=== PATIENT | female | born 1985 | race Caucasian/White ===

== ENCOUNTER 2019-04-21 13:15 | Outpatient (CLI) | payer OTHER, SELFPAY ==
[2019-04-21 14:13] LABS: Hematocrit 36.6 % (37.0-47.0); Hemoglobin 11.9 g/dL (12.0-15.0); Mean Corpuscular HGB Conc 32.5 g/dl (32-36); Mean Corpuscular Hemoglobin 29.9 pg (26-34); Mean Platelet Volume 10.2 fl (7.4-10.4); Platelet Count Result 273 k/mm3 (150-375); Red Blood Count 3.98 M/mm3 (4.2-5.4); Red Cell Distribution Width 12.2 % (11.5-14.5); White Blood Count 7.6 K/mm3 (4.5-10.0)
== END 2019-04-21 13:16 | disposition home or self-care (01) ==
LOC: ANHLAB 13:18
PROVIDERS: Visit Provider Obstetrics & Gynecology
DX: N92.6 Irregular menstruation, unspecified (principal)
CPT/HCPCS: 36415; 85027

== ENCOUNTER 2024-01-29 09:42 | Outpatient (CLI) | payer OTHER, SELFPAY ==
[2024-01-29 10:21] LABS: Basophils Percent Auto 0.3 % (0.2-1.2); Eosinophils Absolute Auto 0.1 K/mm3 (0-0.3); Eosinophils Percent Auto 0.7 % (0-4.4); Hematocrit 38.1 % (37.0-47.0); Hemoglobin 12.3 g/dL (12.0-15.0); Immature Granulocyte Absolute 0.05 K/mm3 (0.00-0.031); Immature Granulocyte Percent A 0.6 % (0-0.5); Lymphocytes Absolute Auto 1.47 K/mm3 (0.9-3.2); Mean Corpuscular HGB Conc 32.3 g/dl (32-36); Mean Corpuscular Hemoglobin 29.4 pg (26-34); Mean Corpuscular Volume 91.1 fl (80-100); Mean Platelet Volume 10.1 fl (7.4-10.4); Monocytes Absolute Auto 0.5 K/mm3 (0.1-0.6); Monocytes Percent Auto 5.9 % (2.6-8.5); Neutrophils Absolute Auto 6.5 K/mm3 (1.3-6.7); Neutrophils Percent Auto 75.5 % (45.5-73.1); Platelet Count Result 275 k/mm3 (150-375); Red Blood Count 4.18 M/mm3 (4.2-5.4); Red Cell Distribution Width 13.2 % (11.5-14.5); White Blood Count 8.7 K/mm3 (4.5-10.0)
[2024-01-29 11:06] LABS: Rapid Plasma Reagin Non-Reactive (NonReactive)
[2024-01-29 11:11] LABS: Hepatitis B Surface Antigen Negative (Negative); Rubella IgG Antibody 48.1 IU/ML
[2024-01-29 11:12] LABS: HIV 1/2 Ab P24 Ag Result Negative (Negative)
[2024-01-30 07:18] LABS: CMV IgG Antibody <0.60 U/mL
== END 2024-01-29 09:43 | disposition home or self-care (01) ==
LOC: ANHLAB 09:43
PROVIDERS: Visit Provider Student in an Organized Health Care Education/Training Program
DX: N94.89 Other specified conditions associated with female genital organs and menstrual cycle (principal)
CPT/HCPCS: 36415; 84702; 85025; 86592; 86644; 86703; 86747; 86762; 86787; 86850; 86900; 86901; 87086; 87340; G0432

== ENCOUNTER 2024-04-04 08:44 | Outpatient (CLI) | payer OTHER, SELFPAY ==
--- NOTE | ~2024-04-04 | US_ITS ---
US OB limited 04/04/2024 09:04 Indication: Evaluate cervical length. Procedure: High-resolution Limited obstetrical ultrasound Comparison: Ultrasound dated 02/06/2024 Findings: There is a single living intrauterine in variable presentation. heart rate 183 BPM. Amniotic fluid is subjectively normal. Cervical length is 3.7 cm. The placenta is anterior. No evidence for previa. Impression: 1: Cervical length is 3.7 cm. Reviewed, dictated and finalized at location A. BURSEMENT DIRECTOR Impression: 1: Cervical length is 3.7 cm.
== END 2024-04-04 08:45 | disposition home or self-care (01) ==
LOC: MICIMG 08:45
PROVIDERS: PCP Obstetrics & Gynecology; Visit Provider Obstetrics & Gynecology
DX: O09.892 Supervision of other high risk pregnancies, second trimester (principal)
CPT/HCPCS: 76815

== ENCOUNTER 2024-04-11 14:15 | Outpatient (CLI) | payer OTHER, SELFPAY ==
--- NOTE | ~2024-04-11 | US_ITS ---
EXAMINATION: US OB limited DATE: 04/11/2024 14:42 INDICATION: Supervision of high risk during second trimester of . TECHNIQUE: Real-time ultrasound of the pelvis was performed. The interpreting radiologist was not pre sent for the study. COMPARISON: None. FINDINGS: There is a single living fetus in vertex presentation. The placenta is anterior and not low-lying wi th caudal margin 12.8 cm from the internal cervical os. heart rate is 150 beats per minute (bpm ). The amniotic fluid volume is subjectively normal. Normal cervical length of 3.9 cm. There are a fe w small anechoic nabothian cysts measuring up to 4 mm at the cervix. IMPRESSION: 1. Single living fetus in vertex presentation with heart rate of 150 bpm. 2. Normal cervical length of 3.9 cm. Reviewed, dictated and finalized at location B. ER HAND IMPRESSION: 1. Single living fetus in vertex presentation with heart rate of 150 bpm . 2. Normal cervical length of 3.9 cm.
== END 2024-04-11 14:16 | disposition home or self-care (01) ==
LOC: MICIMG 14:15
PROVIDERS: PCP Obstetrics & Gynecology; Visit Provider Obstetrics & Gynecology
DX: O09.892 Supervision of other high risk pregnancies, second trimester (principal); Z3A.00 Weeks of gestation of pregnancy not specified
CPT/HCPCS: 76815

== ENCOUNTER 2024-06-23 09:51 | Outpatient (CLI) | payer OTHER, SELFPAY ==
--- OUTSIDE RECORDS SUMMARY | 2024-06-23 11:23 | XMS_ITS | Clinical Summary ---
Author Organization [facility] Address [address] [place] [address] Care Team Providers Care Tin Cutter Name Role Phone Unavailable Primary Care Provider Unavailabl e Source Comments [facility],non-owned Affiliates and Associated Physician Practices is amultiple site organization consisting of ambulatory clinics and hospital sitesin [place], [place], [place] and [place]. This disclosure is being madepursuant to the Care Everywhere program and may not contain all information available regarding this patient. Last updated 17.[facility] Allergies No known active allergies Medications * Be aware that medications may not be up to date on this document. Alwaysverify current medications with the patient. Vit-DSS-Fe Fum-FA ( vitamin with iron) tablet Take 1 (one) tablet by mouth once daily Active aspirin (Aspirin) 81 MG chew tabletIndicatio ns:Preeclampsia Take 2 (two) tablets by mouth once [...] - 05/23/2024 11:59 PM CDT Hospital Encounter [facility] Women's Health Maternal & Care [address] [place] [phone] Srini Goncalves MD Discharge Disposition: Home or Self Care 05/09/2024 7:29 AM HOGSHEAD OPENER - 05/09/2024 11:59 PM HOGSHEAD OPENER Hospital Encounter [facility] Maternal & Care [address] [place] [phone] Jin Ross MD Discharge Disposition: Home or Self Care 04/23/2024 8:46 AM HOGSHEAD OPENER - 04/23/2024 11:59 PM HOGSHEAD OPENER Hospital Encounter [facility] Maternal & Care [address] [place] [phone] Dania Castorena MD Discharge Disposition: Home or Self Care 04/23/2024 8:41 AM HOGSHEAD OPENER - 04/23/2024 8:45 AM HOGSHEAD OPENER Hospital Encounter [facility] Maternal & Care [address] [place] [phone] Dania Castorena MD Discharge Disposition: Home or Self Care 03/31/2024 Telephone [facility] Maternal & Care [address] [place] [phone] Marina Kim Appointment (LM for pt to [...] Recorded Sex Assigned at Not on file Legal Sex Female 6:29 AM HOGSHEAD OPENER Gender Identity Not on file Sexual Orientation Not on file Last Filed Vital Signs Vital Sign Reading Time Taken Comments Blood Pressure 119/71 04/23/2024 10:01 AM HOGSHEAD OPENER Pulse 71 04/23/2024 10:01 AM HOGSHEAD OPENER Temperature - - Respiratory Rate - - Oxygen Saturation - - Inhaled Oxygen Concentration - - Weight 77.6 kg (171 lb) 04/23/2024 10:01 AM HOGSHEAD OPENER Height 160 cm (5' 3 ) 04/23/2024 10:01 AM HOGSHEAD OPENER Body Mass Index 30.29 04/23/2024 10:01 AM HOGSHEAD OPENER Plan of Treatment Upcoming Encounters Date Type Department Care Team (Late st Contact Info) Description 07/04/2024 7:30 AM CDT Hospital Encounter [facility] Maternal & Care [address] [place] [address] Health Maintenance Due Date Last Done Comments [...] second trimester SONOGRAM - COMPLETE Routine 05/09/2024 7 :33 AM HOGSHEAD OPENER Hx of delivery, currently , second trimester Multigravida of advanced maternal age in second trimester SONOGRAM - COMPLETE Routine 04/23/2024 8 :59 AM HOGSHEAD OPENER Encounter for anatomic survey Hx of delivery, currently , second trimester 19 weeks gestation of from Last 3 Months Results * SONOGRAM - TRANSVAGINAL (05/23/2024 7:25 AM CDT) Linked Results Indication ======== AMA History of Obesity BMI 30 History ====== OB History 4. Para 2 [id number] 1. live 2004. Gest. age 27 w [...] 1 lb 8 oz EFW by Hadlock ([id number]) appropriate Growth Overview Exam date [place] BPD [...] ======== As clinically indicated Coding ====== Procedures 77076: [place] [address]: US Preg Uterus Transvaginal [facility] [employer] PACS Anatomical Region Laterality Modality Other 05/23/2024 7:25 AM CDT Francesca Santillan MD [facility] ORDERABLES Edited Result - Final * SONOGRAM - COMPLETE (05/09/2024 7:33 AM HOGSHEAD OPENER) Only the most recent of2 resultswithin the time period is included. Linked Results Indication ======== Anatomy Screen Complete AMA History of Obesity BMI 30 History ====== OB History 4. Para 2 [id number] 1. live 2004. Gest. age 27 w [...] and cervical length assessment Coding ====== Procedures 87285: US Uterus Limited 68937: US Preg [facility]us [facility]inal [facility] Anatomical Region Laterality Modality Other 05/09/2024 7:33 AM HOGSHEAD OPENER Francesca Santillan MD [facility] ORDERABLES Edited Result - Final from Last 3 Months Insurance
[2024-06-23 11:29] LABS: Hematocrit 29.7 % (37.0-47.0); Hemoglobin 9.2 g/dL (12.0-15.0); Mean Corpuscular Volume 93.7 fl (80-100); Mean Platelet Volume 9.9 fl (7.4-10.4); Platelet Count Result 245 k/mm3 (150-375); Red Blood Count 3.17 M/mm3 (4.2-5.4); White Blood Count 9.5 K/mm3 (4.5-10.0)
[2024-06-23 11:41] LABS: Glucose 1 Hour PP 50gm Dose 160 mg/dL
[2024-06-23 12:50] LABS: Syphilis IgG/IgM Antibody Negative (Negative)
[2024-06-23 13:15] LABS: HIV 1/2 Ab P24 Ag Result Negative (Negative)
== END 2024-06-23 09:52 | disposition home or self-care (01) ==
LOC: ANHLAB 10:05
PROVIDERS: Visit Provider Obstetrics & Gynecology
DX: Z34.90 Encounter for supervision of normal pregnancy, unspecified, unspecified trimester (principal); Z3A.00 Weeks of gestation of pregnancy not specified
CPT/HCPCS: 36415; 82947; 85027; 86593; 86703; G0432

== ENCOUNTER 2024-07-01 06:52 | Outpatient (CLI) | payer OTHER, SELFPAY ==
--- OUTSIDE RECORDS SUMMARY | 2024-07-01 06:55 | XMS_ITS | Clinical Summary ---
Author Organization [facility] [employer] Address [address] [place] [address] Care Team Providers Care Manager Benefit Name Role Phone Unavailable Primary Care Provider Unavailabl e Source Comments [facility] [employer],non-owned Affiliates and Associated Physician Practices is amultiple site organization consisting of ambulatory clinics and hospital sitesin [place], [place], [place] and [place]. This disclosure is being madepursuant to the Care Everywhere program and may not contain all information available regarding this patient. Last updated 17.[facility] [employer] Allergies No known active allergies Medications * [...] - 05/23/2024 11:59 PM CDT Hospital Encounter [facility] [employer] Women's Health Maternal & Care [address] [place] [phone] Srini Goncalves MD Discharge Disposition: Home or Self Care 05/09/2024 7:29 AM STEWARD/STEWARDESS SMOKE ROOM - 05/09/2024 11:59 PM STEWARD/STEWARDESS SMOKE ROOM [facility] [address] [place] [phone] Jin Ross MD Discharge Disposition: Home or Self Care 04/23/2024 8:46 AM STEWARD/STEWARDESS SMOKE ROOM - 04/23/2024 11:59 PM STEWARD/STEWARDESS SMOKE ROOM [facility] [address] [place] [phone] Dania Castorena MD Discharge Disposition: Home or Self Care 04/23/2024 8:41 AM STEWARD/STEWARDESS SMOKE ROOM - 04/23/2024 8:45 AM STEWARD/STEWARDESS SMOKE ROOM [facility] [address] [place] [phone] Dania Castorena MD Discharge Disposition: Home or Self Care from Last 3 Months Family History Relation [...] on file Legal Sex Female 6:29 AM STEWARD/STEWARDESS SMOKE ROOM Gender Identity Not on file Sexual Orientation Not on file Last Filed Vital Signs Vital Sign Reading Time Taken Comments Blood Pressure 119/71 04/23/2024 10:01 AM STEWARD/STEWARDESS SMOKE ROOM Pulse 71 04/23/2024 10:01 AM STEWARD/STEWARDESS SMOKE ROOM Temperature - - Respiratory Rate - - Oxygen Saturation - - Inhaled Oxygen Concentration - - Weight 77.6 kg (171 lb) 04/23/2024 10:01 AM STEWARD/STEWARDESS SMOKE ROOM Height 160 cm (5' 3 ) 04/23/2024 10:01 AM STEWARD/STEWARDESS SMOKE ROOM Body Mass Index 30.29 04/23/2024 10:01 AM STEWARD/STEWARDESS SMOKE ROOM Plan of Treatment Upcoming Encounters Date Type Department Care Team (Late st Contact Info) Description 07/04/2024 7:30 AM CDT Hospital Encounter [facility] Maternal & Care [address] [phone] Health Maintenance Due Date Last Done Comments PAP SMEAR 1986 HIV SCREENING 2001 HEPATITIS C SCREENING 11/28/2004 DTAP/TDAP/TD VACCINES (1 - Tdap) 2005 HEPATITIS B VACCINE (1 of 3 - 19+ 3-dose series) 2005 COVID-19 VACCINE (1 - 2023-2 5 season) 2023 DEPRESSION SCREENING [...] - COMPLETE Routine 05/09/2024 7 :33 AM STEWARD/STEWARDESS SMOKE ROOM Hx of delivery, currently , second trimester Multigravida of advanced maternal age in second trimester SONOGRAM - COMPLETE Routine 04/23/2024 8 :59 AM STEWARD/STEWARDESS SMOKE ROOM Encounter for anatomic survey Hx of delivery, currently , second trimester 19 weeks gestation of from Last 3 Months Results * SONOGRAM - TRANSVAGINAL (05/23/2024 7:25 AM CDT) Linked Results Indication ======== AMA History of Obesity BMI 30 History ====== OB History 4. Para 2 [id number] 1. live 2004. Gest. age 27 w [...] 1 lb 8 oz EFW by Hadlock ([id number]) appropriate Growth Overview Exam date [place] BPD [...] ======== As clinically indicated Coding ====== Procedures [id number]: [place] [address]: US Preg Uterus Transvaginal [facility] [employer] PACS Anatomical Region Laterality Modality Other 05/23/2024 7:25 AM CDT Francesca Santillan MD [facility] ORDERABLES Edited Result - Final * SONOGRAM - COMPLETE (05/09/2024 7:33 AM STEWARD/STEWARDESS SMOKE ROOM) Only the most recent of2 resultswithin the time period is included. Linked Results Indication ======== Anatomy Screen Complete AMA History of Obesity BMI 30 History ====== OB History 4. Para 2 [id number] 1. live 2005. Gest. age 27 w + 0 d. [...] and cervical length assessment Coding ====== Procedures 43693: US Uterus Limited 74315: US Preg Uterus Transvaginal [facility] [employer] PACS Anatomical Region Laterality Modality Other 05/09/2024 7:33 AM STEWARD/STEWARDESS SMOKE ROOM Francesca Santillan MD [facility] ORDERABLES Edited Result - Final from Last 3 Months Insurance [employer]
[2024-07-01 07:31] LABS: Glucose Fasting Gestational 89 mg/dL (>/=95)
[2024-07-01 08:42] LABS: Glucose 1 Hour Gest 181 mg/dL (>/=180)
[2024-07-01 09:59] LABS: Glucose 2 Hour Gest 167 mg/dL (>/= 155)
[2024-07-01 10:43] LABS: Glucose 3 Hour Gest 117 mg/dL (>/=140)
== END 2024-07-01 06:53 | disposition home or self-care (01) ==
PROVIDERS: Visit Provider Obstetrics & Gynecology
DX: O99.810 Abnormal glucose complicating pregnancy (principal); Z3A.00 Weeks of gestation of pregnancy not specified
CPT/HCPCS: 36415; 82951; 82952

== ENCOUNTER 2024-07-23 19:09 | Observation (INO) | payer OTHER, SELFPAY ==
[2024-07-23] VITALS (27 sets, daily range): BP systolic 109–118; BP diastolic 69–77; PULSE 73–99; O2SAT 97–100; BMI 32.5
--- OUTSIDE RECORDS SUMMARY | 2024-07-23 19:17 | XMS_ITS | Clinical Summary ---
Author Organization [facility] Address [address] [place] [address] Care Team Providers Care Cam Maker Name Role Phone Unavailable Primary Care Provider Unavailabl e Source Comments [facility],non-owned Affiliates and Associated Physician Practices is amultiple site organization consisting of ambulatory clinics and hospital sitesin [place], [place], [place] and [place]. This disclosure is being madepursuant to the Care Everywhere program and may not contain all information available regarding this patient. Last updated 17.[facility] Allergies No known active allergies Medications * [...] Encounters Date Type Department Care Team Description 07/04/2024 11:59 PM CDT Hospital Encounter [facility] Women's Health Maternal & Care [facility] [place] [address] Head, Katie Jacobs MD Discharge Disposition: Home or Self Care 05/23/2024 7:27 AM CDT - 05/23/2024 11:59 PM CDT Hospital Encounter [facility] [address] [place], [place] [id number] Srini Goncalves MD Discharge Disposition: Home or Self Care 05/09/2024 7:29 AM WINDOWS INFRASTRUCTURE ENGINEER - 05/09/2024 11:59 PM WINDOWS INFRASTRUCTURE ENGINEER Hospital Encounter [facility] [address] [place] [id number] Jin Ross MD Discharge Disposition: Home or [...] on file Legal Sex Female 6:29 AM WINDOWS INFRASTRUCTURE ENGINEER Gender Identity Not on file Sexual Orientation Not on file Last Filed Vital Signs Vital Sign Reading Time Taken Comments Blood Pressure 119/71 04/23/2024 10:01 AM WINDOWS INFRASTRUCTURE ENGINEER Pulse 71 04/23/2024 10:01 AM WINDOWS INFRASTRUCTURE ENGINEER Temperature - - Respiratory Rate - - Oxygen Saturation - - Inhaled Oxygen Concentration - - Weight 77.6 kg (171 lb) 04/23/2024 10:01 AM WINDOWS INFRASTRUCTURE ENGINEER Height 160 cm (5' 3 ) 04/23/2024 10:01 AM WINDOWS INFRASTRUCTURE ENGINEER Body Mass Index 30.29 04/23/2024 10:01 AM WINDOWS INFRASTRUCTURE ENGINEER Plan of Treatment Health Maintenance Due Date Last Done Comments PAP SMEAR 1986 HIV SCREENING 2001 HEPATITIS C SCREENING 11/28/2004 DTAP/TDAP/TD VACCINES (1 - Tdap) 2005 HEPATITIS B VACCINE (1 of 3 - 19+ 3-dose series) 2005 COVID-19 VACCINE (2023-2 5 season) 2023 DEPRESSION SCREENING 03/05/2024 OB-ONE [...] Priority Date/Time Associated Diagnosis Comments SONOGRAM - COMPLETE Routine 07/04/2024 7 :43 AM CDT Hx of delivery, currently , second trimester (HCC) Multigravida of advanced maternal age in second trimester ([facility]) with 29 completed weeks gestation (HCC) Encounter for ultrasound to assess growth ([facility]) SONOGRAM - TRANSVAGINAL Routine 05/23/2024 7:25 AM CDT Hx of delivery, currently , second trimester Multigravida of advanced maternal age in second trimester SONOGRAM - COMPLETE Routine 05/09/2024 7 :33 AM WINDOWS INFRASTRUCTURE ENGINEER Hx of delivery, currently , second trimester Multigravida of advanced maternal age in second trimester from Last 3 Months Results * SONOGRAM - COMPLETE (07/04/2024 7:43 AM CDT) Only the most recent of2 resultswithin the time period is included. Linked Results Indication ======== A1GDM (well controlled) AMA History of Obesity BMI 30 History ====== OB History 4. Para 2 [id number] 1. live 2004. Gest. age 27 w + 0 d. Weight 1,559 g. Sex of child: female. Details: Vaginal delivery; PROM 2. live 2017. Gest. age 39 w + 0 d. Weight 3,033 g. Sex of child: male. Details: Vaginal delivery 3. elective termination Lab Tests Test Date Result Declined Maternal Assessment Physical Exam Height 160 cm, 5 ft 3 in. Weight 82 kg, 180 lb. Initial weight 73 kg, 160 lb. BMI 31.89 kg/m . Initial BMI 28.34 kg/m . Weight gain 9 kg, 20 lb Method ====== Transabdominal ultrasound. View: Sufficient ========= Navarrete . Number of fetuses: 1 Dating ====== Date Details Gest. age ROMMEL LMP 12/09/2023 29 w + 5 d 09/14/2024 Stated ROMMEL 29 w + 5 d 09/14/2024 U/S 07/04/2024 based upon AC, BPD, Femur, HC 30 w + 3 d 09/09/2024 Assigned dating based on the LMP, selected on 04/23/2024 29 w + 5 d 09/14/2024 General Evaluation Cardiac activity present. FHR 144 bpm. Presentation: cephalic Placenta: Placental site: anterior Amniotic fluid: Amount of AF: normal. MVP 8.2 cm. TK 24.1 cm. Q1 3.6 cm, Q2 5.6 cm, Q3 8.2 cm, Q4 6.7 cm Biometry BPD 77.1 mm 31w 0d 76% Hadlock HC 282.0 mm 30w 6d 50% Hadlock AC 264.1 mm 30w 4d 69% Hadlock Femur 54.9 mm 29w 0d 17% Hadlock Humerus 49.4 mm 29w 0d 29% Miranda HC / AC 1.07 Weight Calculation: EFW 1,512 g 51% Hadlock EFW (lb,oz) 3 lb 5 oz EFW by Hadlock ([id number]) appropriate Growth Overview Exam date GA BPD (mm) HC (mm) AC (mm) FL (mm) HL (mm) EFW (g) 04/23/2024 19w 3d 46.4 75% 169.9 51% 144 56% 30.1 38% 29.6 62% 299 51% 05/23/2024 23w 5d 60.5 77% 218.2 38% 202.3 76% 42.7 45% 40 59% 694 73% 07/04/2024 29w 5d 77.1 76% 282 50% 264.1 69% 54.9 17% 49.4 29% 1512 51% Anatomy The following structures appear normal: Abdomen Stomach. Kidneys. Bladder. Impression ========= Single, live, intrauterine at 29w 5d The size is appropriate. Interval growth is appropriate. The amniotic fluid volume is normal. No major malformations were seen within the limits of ultrasound. Comment ======== ultrasound alone cannot detect all structural, genetic, or functional , placental, or maternal abnormalities Follow-up ======== Follow up ultrasound in 4 weeks for growth assessment (patient prefers to have all further ultrasounds at her primary OB office) Coding ====== Procedures 35725: US Preg Uterus Follow Up [employer] PACS Anatomical Region Laterality Modality Other 07/04/2024 7:43 AM CDT Francesca Santillan MD [facility] ORDERABLES Edited Result - Final * SONOGRAM - TRANSVAGINAL (05/23/2024 7:25 AM CDT) Linked Results Indication ======== AMA History of Obesity BMI 30 History ====== OB History 4. Para 2 [id number] 1. live 2004. Gest. age 27 w [...] 1 lb 8 oz EFW by Hadlock ([id number]-FL) appropriate Growth Overview Exam date GA BPD [...] ======== As clinically indicated Coding ====== Procedures 67698: [place] [id number]: [place] Preg Uterus Transvaginal [employer] PACS Anatomical Region Laterality Modality Other 05/23/2024 7:25 AM CDT Francesca Santillan MD [facility] ORDERABLES Edited Result - Final from Last 3 Months Insurance [employer]
--- NOTE | 2024-07-24 07:47 | PM.OBTRLD ---
OB - Triage/Final Diagnosis Visit Information Date of evaluation: 07/23/24 Reason for evaluation: other (fall) Comments/Additional reasons for admission: I have assessed the risk for this patient, Michelle A Spier, and determined that she would benefit from observation care. Evaluation Vital signs: Vital Signs - 24 hr 07/23/24 19:15 07/23/24 19:25 07/23/24 19:26 Pulse Rate 99 Blood Pressure 111/71 Pulse Oximetry 99 Oxygen Delivery Room Air 07/23/24 19:30 07/23/24 19:35 07/23/24 19:40 Pulse Rate 91 Blood Pressure 113/69 Pulse Oximetry 97 98 98 Oxygen Delivery 07/23/24 19:45 07/23/24 19:50 07/23/24 19:55 Pulse Rate 82 Blood Pressure 118/73 Pulse Oximetry 98 99 98 Oxygen Delivery 07/23/24 20:00 07/23/24 20:05 07/23/24 20:10 Pulse Rate 82 Blood Pressure 109/73 Pulse Oximetry 98 97 98 Oxygen Delivery 07/23/24 20:15 07/23/24 20:20 07/23/24 20:25 Pulse Rate 73 Blood Pressure 115/77 Pulse Oximetry 97 98 98 Oxygen Delivery 07/23/24 20:30 07/23/24 20:35 07/23/24 20:40 Pulse Rate Blood Pressure Pulse Oximetry 98 98 99 Oxygen Delivery 07/23/24 20:46 07/23/24 20:51 07/23/24 20:56 Pulse Rate Blood Pressure Pulse Oximetry 100 99 100 Oxygen Delivery 07/23/24 21:01 07/23/24 21:06 07/23/24 21:11 Pulse Rate Blood Pressure Pulse Oximetry 99 99 99 Oxygen Delivery 07/23/24 21:16 07/23/24 21:21 07/23/24 21:26 Pulse Rate Blood Pressure Pulse Oximetry 100 99 99 Oxygen Delivery 07/23/24 21:31 Pulse Rate Blood Pressure Pulse Oximetry 99 Oxygen Delivery
== END 2024-07-23 21:45 | disposition home or self-care (01) ==
PROVIDERS: Admitting Provider Student in an Organized Health Care Education/Training Program; Visit Provider Student in an Organized Health Care Education/Training Program
DX: O26.893 Other specified pregnancy related conditions, third trimester (principal); W19.XXXA Unspecified fall, initial encounter; Z3A.32 32 weeks gestation of pregnancy
CPT/HCPCS: G0378; G0379

== ENCOUNTER 2024-09-08 07:27 | Outpatient (RCR) | payer OTHER, SELFPAY ==
--- OUTSIDE RECORDS SUMMARY | 2024-06-13 11:07 | XMS_ITS | Clinical Summary ---
Author Organization [facility] Address [address] [place] [address] Care Team Providers Care Cattle And Wheat Farmer Name Role Phone Unavailable Primary Care Provider Unavailabl e Source Comments [facility],non-owned Affiliates and Associated Physician Practices is amultiple site organization consisting of ambulatory clinics and hospital sitesin [place], [place], [place] and [place]. This disclosure is being madepursuant to the Care Everywhere program and may not contain all information available regarding this patient. Last updated 17.[facility] Allergies No known active allergies Medications * Be aware that medications may not be up to date on this document. Alwaysverify current medications with the patient. Medication Sig Dispensed Refills Start Date End Date Status Vit-DSS-Fe Fum-FA ( vitamin with iron) tablet Take 1 (one) tablet by mouth once daily Active aspirin (Aspirin) 81 MG chew tabletIndications:Pre eclampsia Take 2 (two) tablets by mouth once daily Reasons: Increased Blood Pressure and Edema During Active Active Problems Problem Noted Date Diagnosed Date Multigravida of advanced maternal age in second trimester 04/23/2024 Hx of delivery, curr ently , second trimester 04/23/2024 Estimated Date of Delivery Comme nts Yes 09/14/2024 Based on last me nstrual period of 12/09/2023 Encounters Date Type Department Care Team Description 05/23/2024 7:27 AM CDT - 05/23/2024 11:59 PM CDT Hospital Encounter [facility] Women's Health Maternal & Care [facility] [place] [address] Srini Goncalves MD Discharge Disposition: Home or Self Care 05/09/2024 7:29 AM HUMAN FACTORS ENGINEER - 05/09/2024 11:59 PM HUMAN FACTORS ENGINEER Hospital Encounter [facility] Maternal & Care [address] [place], [place] [id number] Jin Ross MD Discharge Disposition: Home or Self Care 04/23/2024 8:46 AM HUMAN FACTORS ENGINEER - 04/23/2024 11:59 PM HUMAN FACTORS ENGINEER Hospital Encounter [facility] Maternal & Care [address] [place], [place] [phone] Dania Castorena MD Discharge Disposition: Home or Self Care 04/23/2024 8:41 AM HUMAN FACTORS ENGINEER - 04/23/2024 8:45 AM HUMAN FACTORS ENGINEER Hospital Encounter [facility] Maternal & Care [address] [place] [phone] Dania Castorena MD Discharge Disposition: Home or Self Care 03/31/2024 Telephone [facility] Maternal & Care [address] [place] [phone] Marina Kim Appointment (LM for pt to C/S appt) from Last 3 Months Family History Relation Name Status Comments Brother 1 Alive Brother 2 Alive Brother 3 Alive Father Mother Sister Social History Tobacco Use Types Packs/Day Years Used Date Smoking Tobacco: Never Smokeless Tobacco: Never Tobacco Cessation:Counseling Given: Not Answered Alcohol Use Standard Drinks/Week Comments Not Currently 0 (1 standard drink = 0.6 oz pur e alcohol) Estimated Date of Delivery Comme nts Yes 09/14/2024 Based on last me nstrual period of 12/09/2023 Sex and Gender Information Value Date Recorded Sex Assigned at Not on file Gender Identity Not on file Sexual Orientation Not on file Last Filed Vital Signs Vital Sign Reading Time Taken Comments Blood Pressure 119/71 04/23/2024 10:01 AM HUMAN FACTORS ENGINEER Pulse 71 04/23/2024 10:01 AM HUMAN FACTORS ENGINEER Temperature - - Respiratory Rate - - Oxygen Saturation - - Inhaled Oxygen Concentration - - Weight 77.6 kg (171 lb) 04/23/2024 10:01 AM HUMAN FACTORS ENGINEER Height 160 cm (5' 3) 04/23/2024 10:01 AM HUMAN FACTORS ENGINEER Body Mass Index 30.29 04/23/2024 10:01 AM HUMAN FACTORS ENGINEER Plan of Treatment Upcoming Encounters Date Type Department Care Team (Late st Contact Info) Description 07/04/2024 7:30 AM CDT Appointment [facility] Maternal & Care [address] [place] [phone] Health Maintenance Due Date Last Done Comments PAP SMEAR 1986 HIV SCREENING 2001 HEPATITIS C SCREENING 11/28/2004 DTAP/TDAP/TD VACCINES (1 - Tdap) 2005 HEPATITIS B VACCINE (1 of 3 - 19+ 3-dose series) 2005 COVID-19 VACCINE ( - 2023-2 5 season) 2023 DEPRESSION SCREENING 03/05/2024 OB-ONE HOUR GLUCOSE 06/08/2024 OB-TDAP CURRENT 06/15/2024 OB-RHOGAM INJECTION 06/22/2024 INFLUENZA VACCINE (Season Ended) 2024 ZOSTER VACCINE (1 of 2) 2036 HIB VACCINE Aged Out No longer eligi ble based on patient's age to complete this topic HPV VACCINE Aged Out No longer eligi ble based on patient's age to complete this topic MENINGOCOCCAL (Group B) VACC INE SHARED DECISION-MAKING Aged Out No longer eligibl e based on patient's age to complete this topic MENINGOCOCCAL GROUPS A/C/Y/W VACCINE Aged Out No longer eligible b ased on patient's age to complete this topic PNEUMOCOCCAL VACCINE Aged Out No long er eligible based on patient's age to complete this topic Respiratory Syncytial Virus (RSV) Vaccine Pt: or over 60 yrs (No Doses Required) Completed Procedures Procedure Name Priority Date/Time Associated Diagnosis Comments SONOGRAM - TRANSVAGINAL Routine 05/23/2024 7:25 AM CDT Hx of delivery, currently , second trimester Multigravida of advanced maternal age in second trimester SONOGRAM - COMPLETE Routine 05/09/2024 7:33 AM HUMAN FACTORS ENGINEER Hx of delivery, currently , second trimester Multigravida of advanced maternal age in second trimester SONOGRAM - COMPLETE Routine 04/23/2024 8 :59 AM HUMAN FACTORS ENGINEER Encounter for anatomic survey Hx of delivery, currently , second trimester 19 weeks gestation of from Last 3 Months Results * SONOGRAM - TRANSVAGINAL (05/23/2024 7:25 AM CDT) Linked Results Indication ======== AMA History of Obesity BMI 30 History ====== OB History 4. Para 2 [id number] 1. live 2004. Gest. age 27 w + 0 d. Weight 1,559 g. Sex of child: female. Details: Vaginal delivery; PROM 2. live 2016. Gest. age 39 w + 0 d. Weight 3,033 g. Sex of child: male. Details: Vaginal delivery 3. elective termination Lab Tests Test Date Result Declined Maternal Assessment Physical Exam Height 160 cm, 5 ft 3 in. Weight 80 kg, 176 lb. Initial weight 73 kg, 160 lb. BMI 31.18 kg/m . Initial BMI 28.34 kg/m . Weight gain 7 kg, 16 lb Method ====== Transabdominal and transvaginal ultrasound. View: Sufficient ========= Navarrete . Number of fetuses: 1 Dating ====== Date Details Gest. age ROMMEL LMP 12/09/2023 23 w + 5 d 09/14/2024 Stated ROMMEL 23 w + 5 d 09/14/2024 U/S 05/23/2024 based upon AC, BPD, Femur, HC 24 w + 2 d 09/10/2024 Assigned dating based on the LMP, selected on 04/23/2024 23 w + 5 d 09/14/2024 General Evaluation Cardiac activity present. FHR 144 bpm. Presentation: breech Placenta: Placental site: fundal Amniotic fluid: Amount of AF: normal. MVP 5.9 cm Biometry BPD 60.5 mm 24w 4d 77% Hadlock HC 218.2 mm 23w 6d 38% Hadlock AC 202.3 mm 24w 6d 76% Hadlock Femur 42.7 mm 24w 0d 45% Hadlock Humerus 40.0 mm 24w 2d 59% Miranda HC / AC 1.08 Weight Calculation: EFW 694 g 73% Hadlock EFW (lb,oz) 1 lb 8 oz EFW by Hadlock ([id number]) appropriate Growth Overview Exam date GA BPD (mm) HC (mm) AC (mm) FL (mm) HL (mm) EFW (g) 04/23/2024 19w 3d 46.4 75% 169.9 51% 144 56% 30.1 38% 29.6 62% 299 51% 05/23/2024 23w 5d 60.5 77% 218.2 38% 202.3 76% 42.7 45% 40 59% 694 73% Anatomy The following structures appear normal: Abdomen Stomach. Kidneys. Bladder. Maternal Structures Cervix reassuring Approach - Transvaginal: Cervical length 5.00 cm Impression ========= Single, live, intrauterine at 23w 5d size is appropriate Amniotic fluid volume: normal Transvaginal cervical length is reassuring No major malformations were seen within the limits of ultrasound Follow-up ======== As clinically indicated Coding ====== Procedures 53998: [place] [address]: US Preg Uterus Transvaginal [facility] [employer] PACS Anatomical Region Laterality Modality Other 05/23/2024 7:25 AM CDT Francesca Santillan MD [facility] ORDERABLES * SONOGRAM - COMPLETE (05/09/2024 7:33 AM HUMAN FACTORS ENGINEER) Only the most recent of2 resultswithin the time period is included. Linked Results Indication ======== Anatomy Screen Complete AMA History of Obesity BMI 30 History ====== OB History 4. Para 2 [id number] 1. live 2004. Gest. age 27 w + 0 d. Weight 1,559 g. Sex of child: female. Details: Vaginal delivery; PROM 2. live 2017. Gest. age 39 w + 0 d. Weight 3,033 g. Sex of child: male. Details: Vaginal delivery 3. elective termination Lab Tests Test Date Result Declined Maternal Assessment = Physical Exam Height 160 cm, 5 ft 3 in. Weight 78 kg, 173 lb. Initial weight 73 kg, 160 lb. BMI 30.65 kg/m . Initial BMI 28.34 kg/m . Weight gain 6 kg, 13 lb Method ====== Transabdominal and transvaginal ultrasound. View: Sufficient ========= Navarrete . Number of fetuses: 1 Dating ====== Date Details Gest. age ROMMEL LMP 12/09/2023 21 w + 5 d 09/14/2024 Stated ROMMEL 21 w + 5 d 09/14/2024 Assigned dating based on the LMP, selected on 04/23/2024 21 w + 5 d 09/14/2024 General Evaluation Cardiac activity present. FHR 155 bpm. Presentation: cephalic Placenta: Placental site: anterior Amniotic fluid: Amount of AF: normal. MVP 6.8 cm Anatomy The following structures appear normal: Abdomen Stomach. Kidneys. Bladder. Maternal Structures Cervix reassuring Approach - Transvaginal: Cervical length 4.30 cm Impression ========= Single, live, intrauterine at 21w 5d Amniotic fluid volume: normal Transvaginal cervical length is reassuring Follow-up ======== Follow up ultrasound in 2 weeks for growth and cervical length assessment Coding ====== Procedures 26890: US Uterus Limited 00412: US Preg Uterus Transvaginal [facility] PACS Anatomical Region Laterality Modality Other 05/09/2024 7:33 AM HUMAN FACTORS ENGINEER Francesca Santillan MD [facility] ORDERABLES from Last 3 Months
[2024-08-01 08:54] VITALS: BP 106/65; PULSE 84
[2024-08-04 09:24] VITALS: BP 109/61; PULSE 92
[2024-08-08 09:02] VITALS: BP 108/63; PULSE 85
[2024-08-11 09:16] VITALS: BP 112/63; PULSE 140
[2024-08-14 09:40] VITALS: BP 117/65; PULSE 82
[2024-08-18 09:56] VITALS: BP 99/69; PULSE 78
[2024-08-21 08:50] VITALS: BP 100/64; PULSE 83
[2024-08-25 08:06] VITALS: BP 103/60; PULSE 79
[2024-08-28 07:30] VITALS: BP 111/67; PULSE 83
[2024-09-01 08:55] VITALS: BP 112/61; PULSE 77
[2024-09-04 09:08] VITALS: BP 115/66; PULSE 77
--- NOTE | ~2024-09-08 | US_ITS ---
EXAMINATION: US OB BPP wo non-stress DATE: 08/08/2024 9:11 CDT INDICATION: Gestational diabetes TECHNIQUE: Real-time transabdominal obstetric ultrasound. FINDINGS: There is a single living fetus in vertex presentation. The placenta is fundal/anterior without place nta previa. Amniotic fluid index is normal measuring 20.9 cm. cardiac activity and movement is noted with a heart rate of 144 beats per minute. Biophysical profile: breathin of 2 movement: 2 of 2 tone: 2 of 2 Amniotic flud pocket: 2 of 2 Total score: 8 of 8 IMPRESSION: 1. Single living intrauterine in vertex presentation. 2: Total biophysical profile score of 8/8. Reviewed, dictated and finalized at location A.
--- NOTE | ~2024-09-08 | US_ITS ---
LIMITED OBSTETRIC ULTRASOUND/BIOPHYSICAL PROFILE Ordering provider: Francesca Santillan MD History: . BPP and TK . Comparison: None. FINDINGS: MATERNAL CERVIX: Not visualized PRESENTATION: Vertex. Longitudinal lie. PLACENTAL LOCATION: Fundal anterior. No previa. HEART RATE: 150 bpm (normal is between 110 to 160 bpm). AMNIOTIC FLUID INDEX: 22.1 cm. 5th percentile is 6.5 cm. 95th percentile is 23.9 cm. Largest vertica l pocket is 6.5 cm. normal (TK between 5-25 cm in from 20-35 weeks gestation is considered normal). OTHER: Maternal ovaries not visualized. SCORE: breathing movements: 0 movements: 2 tone: 2 Amniotic fluid volume: 2 Total: 6 Umbilicus cord is seen near to the head and neck. IMPRESSION: Biophysical profile score is 6 out of 8. Single live fetus of Vertex presentation. Umbilical cord is seen near to the head and neck. Reviewed, dictated and finalized at location A.
--- NOTE | ~2024-09-08 | US_ITS ---
LIMITED OBSTETRIC ULTRASOUND/BIOPHYSICAL PROFILE Ordering provider: Francesca Santillan MD History: . GDM . Comparison: None. FINDINGS: MATERNAL CERVIX: Not visualized. cm which is normal (normal is equal to or greater than 3.0 cm). PRESENTATION: Vertex Longitudinal lie. Spine to maternal right. PLACENTAL LOCATION: Anterior. No previa. HEART RATE: 131 bpm (normal is between 110 to 160 bpm). AMNIOTIC FLUID INDEX: 11.1 cm. 5th percentile is 7.3 cm. 95th percentile is 23.9 cm. Largest vertica l pocket is 5.5 cm. normal (TK between 5-25 cm in from 20-35 weeks gestation is considered normal). Possible nuchal cord is again demonstrated. OTHER: Maternal ovaries not visualized. SCORE: breathing movements: 2 movements: 2 tone: 2 Amniotic fluid volume: 2 Total: 8 IMPRESSION: Normal biophysical profile. Single live fetus of Vertex presentation. Highly suggestive nuchal cord. Reviewed, dictated and finalized at location A.
--- NOTE | ~2024-09-08 | US_ITS ---
EXAMINATION: US OB BPP wo non-stress DATE: 08/01/2024 09:26 INDICATION: Maternal gestational diabetes during third trimester . Assess amniotic fluid ind ex. TECHNIQUE: Real-time pelvic ultrasound was performed. The interpreting radiologist was not present fo r the study. COMPARISON: None. FINDINGS: There is a single living fetus in vertex presentation. The placenta is fundal. heart rate is 1 45 beats per minute (bpm). Normal amniotic fluid index of 21.9 cm (5th%-95%: 8.1-24.8 cm at 34 weeks estimated gestational age). Biophysical profile performed by the technologist: breathing (30 sec sustained breathing in 30 minutes): 2 out of 2 movement (3 gross body movements in 30 minutes): 2 out of 2 tone (one episode of malruua-kyhmipkrq-gtabxxz limb movement): 2 out of 2 Amniotic fluid pocket (2 cm): 2 out of 2 Total score: 8 out of 8 IMPRESSION: 1. Single living fetus in vertex presentation with heart rate of 145 bpm. 2. Biophysical profile 8 out of 8. 3. Normal amniotic fluid index of 21.9 cm. Reviewed, dictated and finalized at location A.
--- NOTE | ~2024-09-08 | US_ITS ---
LIMITED OBSTETRIC ULTRASOUND/BIOPHYSICAL PROFILE Ordering provider: Rob Perez MD History: . TK and BPP for Gest DM . Comparison: None. FINDINGS: PRESENTATION: Vertex. Longitudinal lie. PLACENTAL LOCATION: Fundal. No previa. HEART RATE: 137 bpm (normal is between 110 to 160 bpm). AMNIOTIC FLUID INDEX: 17.13 cm. 5th percentile is 7.5 cm. 95th percentile is 24.4 cm. Largest vertic al pocket is 7.3 cm. normal (TK between 5-25 cm in from 20-35 weeks gestation is considered normal). OTHER: Maternal ovaries not visualized. The cord is seen near to the head and neck. Follow-up advised SCORE: breathing movements: 2 movements: 2 tone: 2 Amniotic fluid volume: 2 Total: 8 IMPRESSION: Normal biophysical profile. Single live fetus of Vertex presentation. Normal amniotic fluid. The cord is seen around the head and neck. Follow-up advised. Reviewed, dictated and finalized at location A.
--- NOTE | ~2024-09-08 | US_ITS ---
EXAMINATION: US OB BPP wo non-stress DATE: 08/14/2024 09:24 INDICATION: Gestational diabetes requiring third trimester. Assess amniotic fluid index and biophysic al profile. TECHNIQUE: Real-time pelvic ultrasound was performed. The interpreting radiologist was not present fo r the study. COMPARISON: 08/08/2024 FINDINGS: There is a single living fetus in vertex presentation. The placenta is anterior and not low-lying. F etal heart rate is 144 beats per minute (bpm). Amniotic fluid index of 24.2 cm which remains normal ( 5th%-95%: 7.7-24.9 cm at T6 weeks estimated gestational age). Biophysical profile performed by the technologist: breathing (30 sec sustained breathing in 30 minutes): 2 out of 2 movement (3 gross body movements in 30 minutes): 2 out of 2 tone (one episode of yxthmlv-urjyfdoac-bpxglqt limb movement): 2 out of 2 Amniotic fluid pocket (2 cm): 2 out of 2 Total score: 8 out of 8 IMPRESSION: 1. Single living fetus in vertex presentation with heart rate of 144 bpm. 2. Biophysical profile 8 out of 8. 3. Normal amniotic fluid index of 24.2 cm. Reviewed, dictated and finalized at location A.
--- NOTE | ~2024-09-08 | US_ITS ---
EXAMINATION: US OB BPP wo non-stress DATE: 09/04/2024 09:13 CDT INDICATION: Gestational diabetes TECHNIQUE: Real-time transabdominal obstetric ultrasound. 4 para 2 FINDINGS: There is a single intrauterine gestation in vertex presentation. The placenta is anterior without pl acenta previa. TK measures 13.2 cm, within normal limits. cardiac activity and movement is noted with a heart rate of 144 beats per minute. Biophysical profile: breathin of 2 movement: 2 of 2 tone: 2 of 2 Amniotic fluid pocket: 2 of 2 Total score: 8 of 8 Punctate calcifications are identified within the placenta, consistent with the duration of gestation . IMPRESSION: 1. Single intrauterine gestation in vertex presentation. 2: Total biophysical profile score of 8 out of 8. 3. TK measures 13.2 cm Reviewed, dictated and finalized at location []
[2024-09-08 07:54] VITALS: BP 102/60; PULSE 79
== END 2024-09-11 23:59 | disposition home or self-care (01) ==
LOC: ANHOBOP 07:27
PROVIDERS: Visit Provider Obstetrics & Gynecology
DX: O36.8190 Decreased fetal movements, unspecified trimester, not applicable or unspecified (principal); O24.419 Gestational diabetes mellitus in pregnancy, unspecified control; Z3A.34 34 weeks gestation of pregnancy; O09.513 Supervision of elderly primigravida, third trimester; Z3A.35 35 weeks gestation of pregnancy; Z3A.36 36 weeks gestation of pregnancy; Z3A.37 37 weeks gestation of pregnancy; Z3A.38 38 weeks gestation of pregnancy; Z3A.39 39 weeks gestation of pregnancy
CPT/HCPCS: 59025; 76819

== ENCOUNTER 2024-09-10 05:56 | Inpatient (IN) | payer OTHER, SELFPAY ==
[2024-09-10] VITALS (103 sets, daily range): BP systolic 73–138; BP diastolic 14–90; PULSE 58–143; RESP 16–18; TEMP 36.5–37.3; O2SAT 98–100; BMI 32.5
--- OUTSIDE RECORDS SUMMARY | 2024-09-10 06:00 | XMS_ITS | Clinical Summary ---
Author Organization [facility] [employer] Address [address] [place] [address] Care Team Providers Care Textile Supervisor Name Role Phone Unavailable Primary Care Provider Unavailabl e Source Comments [facility] [employer],non-owned Affiliates and Associated Physician Practices is amultiple site organization consisting of ambulatory clinics and hospital sitesin [place], [place], [place] and [place]. This disclosure is being madepursuant to the Care Everywhere program and may not contain all information available regarding this patient. Last updated 17.[facility] [employer] Allergies No known active allergies Medications * [...] Description 07/04/2024 11:59 PM CDT Hospital Encounter [facility] [employer] Women's Health Maternal & Care [address] [place] [id number] Head, Katie Jacobs MD Discharge Disposition: [...] on file Legal Sex Female 6:29 AM NIGHT FILLER Gender Identity Not on file Sexual Orientation Not on file Last Filed Vital Signs Vital Sign Reading Time Taken Comments Blood Pressure 119/71 04/23/2024 10:01 AM NIGHT FILLER Pulse 71 04/23/2024 10:01 AM NIGHT FILLER Temperature - - Respiratory Rate - - Oxygen Saturation - - Inhaled Oxygen Concentration - - Weight 77.6 kg (171 lb) 04/23/2024 10:01 AM NIGHT FILLER Height 160 cm (5' 3) 04/23/2024 10:01 AM NIGHT FILLER Body Mass Index 30.29 04/23/2024 10:01 AM NIGHT FILLER Plan of Treatment Health Maintenance Due Date Last Done Comments HIV SCREENING 2001 HEPATITIS C SCREENING 11/28/2004 DTAP/TDAP/TD VACCINES (1 - Tdap) 2005 HEPATITIS B VACCINE (1 of 3 - 19+ 3-dose series) 2005 PAP SMEAR 12/04/2007 COVID-19 VACCINE (1 - 2023-2 5 season) 2023 DEPRESSION SCREENING 03/05/2024 OB-ONE HOUR GLUCOSE 06/08/2024 OB-TDAP CURRENT 06/15/2024 OB-RHOGAM INJECTION 06/22/2024 OB-GROUP B STREP SCREEN 08/10/2024 INFLUENZA VACCINE (Season Ended) 2024 ZOSTER VACCINE [...] of advanced maternal age in second trimester (HCC) with 29 completed weeks gestation (HCC) Encounter for ultrasound to assess growth ([facility]) from Last 3 Months Results * SONOGRAM - COMPLETE (07/04/2024 7:43 AM CDT) Linked Results Indication ======== A1GDM (well controlled) AMA History of Obesity BMI 30 History ====== OB History 4. Para 2 [id number] 1. live 2004. Gest. age 27 w [...] 3 lb 5 oz EFW by Hadlock (TMF-RO-[id number]-FL) appropriate Growth Overview Exam date GA BPD [...] her primary OB office) Coding ====== Procedures 11668: US Preg Uterus Follow Up [facility] [employer] PACS Anatomical Region Laterality Modality Other 07/04/2024 7:43 AM CDT Francesca Santillan MD [facility] ORDERABLES Edited Result - Final from Last 3 Months Insurance [facility] [address] [place] [id number] [employer] [place] [id number]
--- NOTE | 2024-09-10 06:54 | WPDANESEPP ---
Anes - Eval Pre Procedure Procedure: labor epidural Date/Time: 09/10/24 06:54 Surgeon: elizabeth Preop Diagnosis: pain during labor Pre Op Diagnosis: IOL Patient Data Age: 38 Gender: F Height: Weight: Last Vital Signs Pulse 82 09/10/24 06:30 BP 121/79 09/10/24 06:30 Allergies Allergy/AdvReac Type Severity Reaction Status Date / Time No Known Allergies Allergy Verified 09/09/24 14:40 Home Medications ?Medication ?Instructions ?Recorded ?Confirmed ?Type vits no.126-ferrous fum 1 tablet PO HS 01/29/24 09/09/24 History 28 mg iron-folic acid 800 mcg tablet (Classic ) ferrous sulfate 325 mg (65 mg 325 mg PO BID 07/01/24 09/09/24 History iron) tablet Patient hx anesthesia problems: none Family hx anesthesia problems: none Results Review: All pre-operative results and documents have been reviewed as part of the pre-operative evaluation. [facility] Past Medical History Medical History Gestational diabetes Abnormal glucose tolerance in Irregular periods Condyloma acuminatum (~12/22/12) Surgical History Surgical History History of gynecological procedure (03/19/07) mirena iud insertion History of gynecological procedure (05/21/07) mirena iud removal History of biopsy (12/30/12) vulvar bx - condyloma acuminatum Family History Family History Mother Aneurysm Lung cancer Father CHF (congestive heart failure) Diabetes type 2 Grandparent Brain malignant neoplasm maternal grandparents Lung cancer maternal grandparents Social History Social History Smoking status: Never smoker Tobacco type: cigarettes Second hand tobacco smoke exposure: No Smoking end date: 04/05/18 Alcohol intake: former Alcohol use details: 1-2 a month Substance use: current Substance use type: marijuana Other substance usage details: daily, gummies Do You Feel Safe in your Home?: Yes Lack of Transportation: No Lack of Food: Never True Current Housing: I Have Housing Concerned About Future Housing: No Difficulty Paying Gas/Electric Bills: No Difficulty Paying for Meds: No Currently Unemployed: No Education: Trade/Vocational Certificate Difficulty w/ Childcare or Family Care: No Living arrangements: other Additional living arrangements comments: Occupation/Education: occupation Additional occupation/education comments: Nurse Gender identity (if verbalized by the patient): Female Sexual Orientation (if Verbalized by the Patient): Straight or Heterosexual Spiritual care concerns: No Exam Day of Procedure 09/10/24 06:54
[2024-09-10 07:14] LABS: Hematocrit 35.1 % (37.0-47.0); Hemoglobin 11.4 g/dL (12.0-15.0); Immature Granulocyte Percent A 0.7 % (0-0.5); Lymphocytes Absolute Auto 1.16 K/mm3 (0.9-3.2); Mean Corpuscular HGB Conc 32.5 g/dl (32-36); Mean Corpuscular Hemoglobin 30.6 pg (26-34); Mean Corpuscular Volume 94.1 fl (80-100); Nucleated Red Blood Cells Absolute Auto 0.000 K/mm3 (0.0-0.012); Nucleated Red Blood Cells Perc 0.0 % (0.0-0.2); Platelet Count Result 194 k/mm3 (150-375); Red Blood Count 3.73 M/mm3 (4.2-5.4); White Blood Count 9.8 K/mm3 (4.5-10.0)
--- NOTE | 2024-09-10 07:24 | LDADM ---
This patient, Michelle Boston, was admitted to Labor/Delivery/Recovery 107 on 09/10/24 at 05:56. Plans for labor, pain management and were discussed with patient. Patient/family oriented to hospital policies and general routines including ID bracelet, bed and alarms, visiting hours, pain management, procedures, bathroom and other care routines, personal items, smoking policy, room service/diet and guest tray routines, security routines, and visiting hours. Patient/Family are encouraged to report perceived risks to care and to ask questions if they do not understand what they are told or what they should do. See OBIX for further documentation.
[2024-09-10] MEDS: LACTATED RINGERS 1,000 ML 125 ML IV CONT ×2 (07:50→09:52)
[2024-09-10] MEDS: OXYTOCIN 30 UNITS/NS 500 ML 30 UNITS/500 ML BAG IV CONT (07:53)
[2024-09-10 08:45] LABS: Syphilis IgG/IgM Antibody Non-Reactive (Nonreactive)
--- NOTE | 2024-09-10 12:10 | WPDHPUPDATE1 ---
History and Physical Update Update Date/Time: 09/10/24 12:10 History and Physical has been reviewed, including an updated exam of the patient. There are NO changes in the patient's condition. Risks, benefits, and alternatives have been discussed and questions answered. Patient agrees to proceed with procedure.
--- NOTE | 2024-09-10 12:10 | WPDOBADMIT ---
Obstetrics - Admit Note Admission Note: record reviewed. No pertinent additions to the history and/or any subsequent changes in the physical findings that are not consistent with the expected course of the were found. Additions to the history and/or subsequent changes in the physical findings follow. None.
--- NOTE | 2024-09-10 12:10 | PM.OBPRVD ---
OB - Vaginal Delivery Note Procedure Delivery date: 09/10/24 Events: Gestational Diabetes Induction method: AROM Delivery augmentation: Pitocin Delivery monitor: External FHT and Internal Uterine Route of delivery: Episiotomy description: None Laceration Description: Vaginal Delivery repair: chromic Specimen: Yes Quantitative Blood Loss (ml): 200 Anesthesia type: Epidural Disposition: Floor Complications: No immediate complications Narrative: Patient prepped and draped in the usual manner for this procedure. Maternal expulsive efforts readily delivered the vertex over intact perineum. The rest of baby was delivered without difficulty. Cord clamped and cut. Cervix vagina vulva were inspected with small vaginal wall laceration which was rendered hemostatic using 0 chromic running interlocking manner. Placenta did not remove readily and therefore manual removal was undertaken. This was done without difficulty and the placenta was delivered in multiple pieces, but once removed the entirety of the uterus was cleared of membranes and placenta. at this point the procedure was considered terminated with minimal bleeding. 2g of Ancef given due to manual removal of placenta. [place] Baby Gestational Age by Date: 39 Infant gender: Female presentation: vertex Placenta delivery description: Manual Removal Cord Vessel Description: 3 Vessels score one minute: 8 score five minutes: 9
--- NOTE | 2024-09-10 12:34 | S_PTH ---
PATIENT: Michelle Boston LOC: [facility] U#:[id number] AGE/SX: 38/F ROOM: 281 RE09/10/[address]: Rob Perez MD : 1985 BED: 00 DIS: 09/11/2024 SPEC #: [id number] RECD: 09/11/24 08:00 STATUS: BILL REQ #: [id number] ANTHONY: 09/10/24 12:[address]: Rob Perez DEPT: [facility] Surgical RECD BY: Marylin Esparza ENTERED: 09/11/24 08:00 SP TYPE: Surgical OTHR DR: UNKNOWN,DOCTOR Tissues: A - Placenta Procedures: Hematoxylin and Eosin Stain Gross and Microscopic Level 5
[2024-09-10] MEDS: ceFAZolin 2 GM in SODIUM CHLORIDE 0.9% IV 50 ML 100 ML IVPB (12:59)
[2024-09-10] MEDS: BENZOCAINE 20% AER SPR (*SP) 56 GM CAN 1 SPRAY TOPICAL (14:19)
[2024-09-10] MEDS: WITCH HAZEL 40 PADS 1 PAD TOPICAL (14:19)
--- NOTE | 2024-09-10 15:15 | PC.NURSE ---
Patient transferred to post room #281 via wheelchair at 1500. Support person present. Oriented to unit, room, information board, rooming in, admission packet and security measures. Patient verbalizes understanding.
--- NOTE | 2024-09-10 15:41 | PC.NURSE ---
Patient viewed the discharge video [facility], The First Two Weeks. Patient was given the opportunity and encouraged to ask questions. Patient verbalized understanding of information shared and has been given the mother/baby guide for home reference.
--- NOTE | 2024-09-10 16:23 | PC.NURSE ---
Introductions were made, mother will call this RN with next feeding if assistance is needed. She states that her first feeding went well and lasted on and off for 70 minutes total.
[2024-09-11 04:30] LABS: Hematocrit 33.8 % (37.0-47.0); Hemoglobin 10.7 g/dL (12.0-15.0)
[2024-09-11] MEDS: MULTIVIT/MIN/PREN/FOL AC/IRON TABLET 1 TAB PO (07:30)
--- NOTE | 2024-09-11 07:55 | WPDANLDNPN2 ---
Anes-Prog Note L&D-Neuraxial Date/Time: 09/11/24 07:55 Neuraxial medications: intrathecal PF morphine Opiod-related complaints: none Patient feedback: Patient satisfied with post-operative pain management.
--- NOTE | 2024-09-11 07:56 | WPDANLDPN2 ---
Anes-Prog Note L&D Date/Time: 09/11/24 07:56 Comfortable throughout: delivery and section Neuraxial method: spinal Epidural/Spinal procedure site: clean & non-tender Neuro status: Neuro function grossly intact. Cardiovascular status: normal Respiratory status: normal Airway patency: baseline Mental status: baseline Post-Op hydration status: normal Vital Signs: Last Vital Signs Temp 36.5 C 09/10/24 22:43 Pulse 72 09/10/24 22:43 Resp 18 09/10/24 22:43 BP 112/67 09/10/24 22:43 Pulse Ox 98 09/10/24 22:43 O2 Del Method Room Air 09/10/24 19:48 Pain score (VAS): 0 I/O: Intake & Output 09/10/24 09/10/24 09/11/24 15:59 23:59 07:59 Intake Total 1000 Output Total 85 Balance 1000 -85 Post-procedural complaints: none Patient feedback: Patient satisfied with anesthetic care. Other findings: nausea/dizziness immediately after c/s. currently anemic, addressed by OB
[2024-09-11 08:10] VITALS: BP 107/62; PULSE 63; RESP 18; TEMP 37; O2SAT 99
--- NOTE | 2024-09-11 11:11 | PC.NURSE ---
Mother verbalizes she is able to independently latch with appropriate positioning and alignment. She denies any nipple discomfort and is responsively . Infant is currently meeting outcomes for weight, output, jaundice, blood sugar and feeding frequencies of 8-12 times in 24 hours. Mother declines any additional assistance or education at this time. Mother is encouraged to call for assistance if her infant doesn?t latch, pain with latching, questions or concerns. Mother voiced understanding of information shared along with the mom/baby guide for an additional resource. Reported to the Primary RN.
--- NOTE | 2024-09-11 11:31 | PM.OBDSVD ---
DS: Admitting Diagnosis Discharge Date 09/11/2024 Admitting Diagnosis DS: Discharge Diagnosis Discharge Diagnosis (1) , delivered: Code(s): O80 - Encounter for full-term uncomplicated delivery Status: Acute OB - DS: Summary OB Procedures : None OB Procedures Intrapartum: Spontaneous Vag Delivery OB Procedures: : None Peripartum Data Laceration Description: Vaginal Episiotomy description: None Time Spent with Patient Time attestation: Total time spent providing and/or coordinating discharge services: DS: Data Data Completed and Pending Pending studies at discharge: Pending at discharge 09/10/24 12:34 Surgical [PTH] Routine Labs on day of discharge: Labs from last 24 hours 09/11/24 03:57 Hgb 10.7 L Hct 33.8 L Discharge Plan Discharge Attending physician on discharge: Rob Perez Discharging Clinician: Rob Perez Patient Disposition: Home Activity: as tolerated Diet: as tolerated Patient Instructions: Antibiotic Form Patient Language: Montenegrin Stand Alone Forms: General Discharge Information Follow-up/Referrals: Rob Perez MD [Physician] - 4 Weeks Discharge Medications: New ibuprofen 600 mg Tablet 600 mg PO Q6H PRN (Reason: Cramping) Qty: 20 0RF Continued Classic 28 mg iron- 800 mcg tablet 1 tablet PO HS ferrous sulfate 325 mg (65 mg iron) tablet 325 mg PO BID Date of admission: 09/10/24 05:56 Primary Care Provider: UNKNOWN,DOCTOR Admitting Provider: Rob Perez Attending physician on admission: Rob Perez Condition: Stable
[2024-09-12 08:42] VITALS: BP 124/89; PULSE 87; RESP 18; TEMP 36.7; O2SAT 100
== END 2024-09-11 17:50 | disposition home or self-care (01) | DRG 806 ==
LOC: ANHLDR 05:59 → ANHOB2 15:02
PROVIDERS: Admitting Provider Obstetrics & Gynecology; Visit Provider Obstetrics & Gynecology
DX: O24.429 Gestational diabetes mellitus in childbirth, unspecified control (principal); O71.4 Obstetric high vaginal laceration alone; Z37.0 Single live birth; Z3A.39 39 weeks gestation of pregnancy; O77.0 Labor and delivery complicated by meconium in amniotic fluid
CPT/HCPCS: 36415; 82948; 85014; 85018; 85025; 86593; 86850; 86900; 86901; 88307; J0690; A9270; J2590; J2795; J7120

== ENCOUNTER 2024-09-15 14:31 | Outpatient (CLI) | payer OTHER, SELFPAY ==
--- NOTE | ~2024-09-15 | US_ITS ---
US axilla RT 09/15/2024 14:51 Indication: Palpable right axillary lymph node Procedure: High-resolution Limited ultrasound of the right axilla Comparison: No prior studies for comparison. Findings: There are multiple right axillary lymph nodes, some of which appear enlarged, likely reacti ve lymph nodes. No suspicious masses are identified. No abnormal fluid collections. Impression: 1: Mildly enlarged right axillary lymph nodes with fatty hilum, likely reactive. BI-RADS CATEGORY 2 - BENIGN FINDINGS Reviewed, dictated and finalized at location B. Impression: 1: Mildly enlarged right axillary lymph nodes with fatty hilum, likely reactive . BI-RADS CATEGORY 2 - BENIGN FINDINGS
== END 2024-09-15 14:32 | disposition home or self-care (01) ==
LOC: MICIMG 14:32
PROVIDERS: PCP Obstetrics & Gynecology; Visit Provider Obstetrics & Gynecology
DX: R59.0 Localized enlarged lymph nodes (principal)
CPT/HCPCS: 76882